=== PATIENT | female | born 1990 | race Caucasian/White ===

== ENCOUNTER 2017-02-27 20:32 | Observation (INO) | payer OTHER ==
[2017-02-27 21:41] LABS: ABSOLUTE EOSINOPHILS # (AUTO) 0.1 10^3/uL (0.0-0.6); ABSOLUTE MONOCYTES (AUTO) 0.9 10^3/uL (0.1-1.4); ABSOLUTE NEUT (AUTO) 7.2 10^3/uL (1.7-8.2); BASOPHILS % (AUTO) 0.4 % (0-2); EOSINOPHILS % (AUTO) 1.2 % (0-6); HEMATOCRIT 28.9 % (36.0-47.0); HEMOGLOBIN 9.8 g/dL (12.0-15.5); HGB HCT DIFFERENCE 0.5; LYMPHOCYTES % (AUTO) 19.2 % (13-45); MEAN CORPUSCULAR HEMOGLOBIN 29.8 pg (27.0-33.4); MEAN CORPUSCULAR HGB CONC 34.1 g/dL (32.0-36.0); MEAN CORPUSCULAR VOLUME 87 fl (80-97); MONOCYTES % (AUTO) 8.7 % (3-13); RED BLOOD COUNT 3.31 10^6/uL (3.72-5.28); RED CELL DISTRIBUTION WIDTH 14.2 % (11.5-14.0); SEGMENTED NEUTROPHILS % (AUTO) 70.5 % (42-78); WHITE BLOOD COUNT 10.2 10^3/uL (4.0-10.5)
[2017-02-27 21:43] LABS: APPEARANCE,URINE CLEAR; BILIRUBIN,URINE NEGATIVE (NEGATIVE); GLUCOSE, URINE NEGATIVE (NEGATIVE); KETONES,URINE NEGATIVE (NEGATIVE); LEUKOCYTE ESTERASE,URINE MODERATE (NEGATIVE); NITRITE,URINE NEGATIVE (NEGATIVE); PROTEIN,URINE >=500 mg/dL (NEGATIVE); URINE SPECIFIC GRAVITY 1.009; UROBILINOGEN,URINE NEGATIVE mg/dL (<2.0)
[2017-02-27 21:56] LABS: ALANINE AMINOTRANSFERASE 34 U/L (9-52); ALBUMIN 4.4 g/dL (3.5-5.0); ALKALINE PHOSPHATASE 52 U/L (38-126); ANION GAP 15 (5-19); ASPARTATE AMINO TRANSFERASE 17 U/L (14-36); BILIRUBIN,DIRECT 0.3 mg/dL (0.0-0.4); BILIRUBIN,TOTAL 0.3 mg/dL (0.2-1.3); BLOOD UREA NITROGEN 8 mg/dL (7-20); CALCIUM 9.7 mg/dL (8.4-10.2); CARBON DIOXIDE 23 mmol/L (22-30); CHLORIDE 103 mmol/L (98-107); CREATININE RESULT 0.77 mg/dL (0.52-1.25); GLUCOSE 112 mg/dL (75-110); LIPASE 51.9 U/L (23-300); POTASSIUM 3.9 mmol/L (3.6-5.0); SODIUM 140.7 mmol/L (137-145)
[2017-02-27] MEDS ORDERED: ONDANSETRON 4 MG TAB.RAPDIS PO ONE (23:15)
[2017-02-27] MEDS ORDERED: ACETAMINOPHEN 325 MG TABLET PO ONE (23:15)
[2017-02-27] MEDS ORDERED: NORMAL SALINE 1000 ML 1,000 ML IV ONE (23:17)
--- NOTE | 2017-02-27 23:18 | ER Document Report ---
ED Medical Screen (RME) - General Chief Complaint: Abdominal Pain Stated Complaint: LOWER ABDOMINAL PAIN Notes: Patient is a 26 right lower quadrant pain, she states it still hurts but sometimes it hurts a lot including when she sneezed and when she walks. Symptoms started yesterday. She was not aware she was running a low-grade fever. She denies vomiting, she states she had a normal bowel movement recently , she is currently on her menstrual cycle. She denies dysuria, flank pain. She does have painful periods but this is much worse than usual. TRAVEL OUTSIDE OF THE [place] IN LAST 30 DAYS: No - Related Data Allergies/Adverse Reactions: No Known Allergies Allergy (Unverified 02/27/17 21:06) Past Medical History Renal/ Medical History: Denies: Hx Peritoneal Dialysis Physical Exam - Vital signs Vitals: Temp Pulse Resp BP Pulse Ox 100.4 F 139 H 16 138/77 H 100 02/27/17 21:05 02/27/17 21:05 02/27/17 21:05 02/27/17 21:05 02/27/17 21:05 Course - Re-evaluation Re-evalutation: Patient actually is nontoxic in appearance, however she has low-grade fever, tachycardia, and she is guarding in her right lower quadrant. Will perform CAT scan. - Vital Signs Vital signs: Temp Pulse Resp BP Pulse Ox 100.4 F 139 H 16 138/77 H 100 02/27/17 21:05 02/27/17 21:05 02/27/17 21:05 02/27/17 21:05 02/27/17 21:05 - Laboratory Result Diagrams: 02/27/17 21:25 02/27/17 21:25 Laboratory results interpreted by me: 02/27/17 02/27/17 02/27/17 21:14 21:25 21:25 RBC 3.31 L Hgb 9.8 L Hct 28.9 L RDW 14.2 H Glucose 112 H Urine Protein >=500 H Urine Blood LARGE H Ur Leukocyte Esterase MODERATE H
--- NOTE | 2017-02-28 02:57 | RADIOLOGY REPORT (SQ) ---
EXAM DESCRIPTION: CT ABD/PELVIS WITH IV ORAL COMPLETED DATE/TIME: 02/28/2017 2:12 am REASON FOR STUDY: RLQ pain COMPARISON: None. TECHNIQUE: CT scan of the abdomen and pelvis performed using helical scanning technique with dynamic intravenous contrast injection. No oral contrast. Images reviewed with lung, soft tissue, and bone windows. Reconstructed coronal and sagittal MPR images reviewed. Delayed images for evaluation of the urinary system also acquired. All images stored on PACS. All CT scanners at this facility use dose modulation, iterative reconstruction, and/or weight based d osing when appropriate to reduce radiation dose to as low as reasonably achievable (ALARA). [facility]: Dose Right [facility]: CareDose [facility]: Dose Right [facility]: Teradose 4D [facility]: [employer] CONTRAST TYPE AND DOSE: contrast/concentration: Isovue 370.00 mg/ml; Total Contrast Delivered: 80.0 ml; Total Saline Delivered: 68.0 ml RENAL FUNCTION: None required. The patient is less than 50 years old. RADIATION DOSE: Up-to-date CT equipment and radiation dose reduction techniques were employed. CTDIv ol: 9.0 mGy. DLP: 982 mGy-cm.. LIMITATIONS: None. FINDINGS: LOWER CHEST: No significant findings. No nodules or infiltrates. LIVER: Normal size. No masses. No dilated ducts. SPLEEN: Normal size. No focal lesions. PANCREAS: No masses. No significant calcifications. No adjacent inflammation or peripancreatic fluid collections. Pancreatic duct not dilated. GALLBLADDER: No identified stones by CT criteria. No inflammatory changes to suggest cholecystitis. ADRENAL GLANDS: No significant masses or asymmetry. RIGHT KIDNEY AND URETER: No solid masses. No significant calcifications. No hydronephrosis or hyd roureter. LEFT KIDNEY AND URETER: No solid masses. No significant calcifications. No hydronephrosis or hydr oureter. AORTA AND VESSELS: No aneurysm. No dissection. Renal arteries, SMA, celiac without stenosis. RETROPERITONEUM: No retroperitoneal adenopathy, hemorrhage or masses. BOWEL AND PERITONEAL CAVITY: No masses or inflammatory changes. No free fluid or peritoneal masses. APPENDIX: Normal. PELVIS: Complex cystic collection at the anterior aspect of the endometrial cavity measure up to 5 cm in 2.4 cm. Minimal inflammation associated with bilateral broad ligaments. ABDOMINAL WALL: No masses. No hernias. BONES: Minimal lower thoracic disc desiccation. OTHER: No other significant finding. IMPRESSION: Indeterminate complex cystic collections involve the endometrium measuring up to 5 cm in 2.4 cm. Differential diagnosis includes clot and submucosal fibroids. Other infectious and neoplas tic processes cannot be excluded. Consider further evaluation/surveillance with pelvic sonogram and/ or HYPERION ADMINISTRATOR consultation. TECHNICAL DOCUMENTATION: JOB ID: [id number] Quality ID # [id number]: Final reports with documentation of one or more dose reduction techniques (e.g., Au tomated exposure control, adjustment of the mA and/or kV according to patient size, use of iterative reconstruction technique) 2010 [employer]- All Rights Reserved
--- NOTE | 2017-02-28 05:06 | RADIOLOGY REPORT (SQ) ---
EXAM DESCRIPTION: U/S NON OB PEL TV W/DOPPLER COMPLETED DATE/TIME: 02/28/2017 4:41 am REASON FOR STUDY: lower abd pain, clarify CT COMPARISON: None. TECHNIQUE: Dynamic and static grayscale images acquired of the pelvis via transvaginal approach and recorded on PACS. Additional selected color Doppler and spectral images recorded. LIMITATIONS: None. FINDINGS: UTERUS: Contour normal. No mass. ENDOMETRIAL STRIPE: Abnormal. Heterogeneous and enlarged measuring between 3.6 cm and 5.3 cm includi ng complex heterogeneous masses measuring up to 5.3 cm and 2.6 cm with hypervascularity demonstrated with Doppler sonogram. CERVIX: No nabothian cysts. 2.7 cm length. RIGHT OVARY: No abnormal masses. RIGHT OVARY DOPPLER: Normal arterial vascular flow without evidence for torsion. LEFT OVARY: No abnormal masses. LEFT OVARY DOPPLER: Normal arterial vascular flow without evidence for torsion. FREE FLUID: None noted. OTHER: No other significant finding. MEASUREMENTS: UTERUS: 10.9 x 7.9 x 6.5 cm. ENDOMETRIAL STRIPE: Abnormal. RIGHT OVARY: 3.1 cm. LEFT OVARY: 3.5 cm. IMPRESSION: Enlarged endometrial cavity with 2 masses discerned measuring 5.3 cm and 2.6 cm which ma y indicate submucosal or pedunculated fibroids, polyps, and/or other neoplasm. REGISTER OF WILLS consultation advi sed. TECHNICAL DOCUMENTATION: JOB ID: [id number]- All Rights Reserved
[2017-02-28] MEDS ORDERED: CEFTRIAXONE 1 GM/D5W RTU 1 GM/50 ML RTUPB IV ONE (06:17)
--- NOTE | 2017-02-28 06:17 | ER Document Report ---
ED General - General Chief Complaint: Abdominal Pain Stated Complaint: LOWER ABDOMINAL PAIN Time Seen by Provider: 02/27/17 23:26 Mode of Arrival: Ambulatory Information source: Patient Notes: 26-year-old female presents with complaints of right lower quadrant abdominal pain fever to 1 day duration. Patient denies any history of STDs was concerned it might be her appendicitis since it hurts with movement TRAVEL OUTSIDE OF THE [place] IN LAST 30 DAYS: No - HPI Onset: Yesterday Onset/Duration: Sudden, Worse Quality of pain: Achy Severity: Mild Pain Level: 1 Associated symptoms: Fever Exacerbated by: Denies Relieved by: Denies Similar symptoms previously: No Recently seen / treated by doctor: No - Related Data Allergies/Adverse Reactions: No Known Allergies Allergy (Unverified 02/27/17 21:06) Past Medical History - Social History Smoking Status: Never Smoker Cigarette use (# per day): No Chew tobacco use (# tins/day): No Smoking Education Provided: No Family History: Reviewed & Not Pertinent Patient has suicidal ideation: No Patient has homicidal ideation: No Renal/ Medical History: Denies: Hx Peritoneal Dialysis Review of Systems - Review of Systems Notes: REVIEW OF SYSTEMS: CONSTITUTIONAL : Febrile EENT: Denies eye, ear, throat, or mouth pain or symptoms. Denies nasal or sinus congestion or discharge. Denies throat, tongue, or mouth swelling or difficulty swallowing. CARDIOVASCULAR: Denies chest pain. Denies palpitations or racing or irregular heart beat. Denies ankle edema. RESPIRATORY: Denies cough, cold, or chest congestion. Denies shortness of breath, difficulty breathing, or wheezing. GASTROINTESTINAL: Admits to right lower quadrant pain GENITOURINARY: Denies difficulty urinating, painful urination, burning, frequency, blood in urine, or discharge. FEMALE GENITOURINARY: Denies vaginal bleeding, heavy or abnormal periods, irregular periods. Denies vaginal discharge or odor. MUSCULOSKELETAL: Denies back or neck pain or stiffness. Denies joint pain or swelling. SKIN: Denies rash, lesions or sores. HEMATOLOGIC : Denies easy bruising or bleeding. LYMPHATIC: Denies swollen, enlarged glands. NEUROLOGICAL: Denies confusion or altered mental status. Denies passing out or loss of consciousness. Denies dizziness or lightheadedness. Denies headache. Denies weakness or paralysis or loss of use of either side. Denies problems with gait or speech. Denies sensory loss, numbness, or tingling. Denies seizures. PSYCHIATRIC: Denies anxiety or stress. Denies depression, suicidal ideation, or homicidal ideation. ALL OTHER SYSTEMS REVIEWED AND NEGATIVE. PHYSICAL EXAMINATION: GENERAL: Well-appearing, well-nourished and in no acute distress. HEAD: Atraumatic, normocephalic. EYES: Pupils equal round and reactive to light, extraocular movements intact, conjunctiva are normal. ENT: Nares patent, oropharynx clear without exudates. Moist mucous membranes. NECK: Normal range of motion, supple without lymphadenopathy LUNGS: Breath sounds clear to auscultation bilaterally and equal. No wheezes rales or rhonchi. HEART: Tachycardic but regular rate and rhythm without murmurs ABDOMEN: Soft, tender in the right lower quadrant Female : deferred Musculoskeletal: Normal range of motion, no pitting or edema. No cyanosis. NEUROLOGICAL: Cranial nerves grossly intact. Normal speech, normal gait. Normal sensory, motor exams PSYCH: Normal mood, normal affect. SKIN: Warm, Dry, normal turgor, no rashes or lesions noted. Dictation was performed using [employer] voice recognition software Physical Exam - Vital signs Vitals: Temp Pulse Resp BP Pulse Ox 100.4 F 139 H 16 138/77 H 100 02/27/17 21:05 02/27/17 21:05 02/27/17 21:05 02/27/17 21:05 02/27/17 21:05 Course - Re-evaluation Re-evalutation: 02/28/17 06:20 Dr guzman consulted 02/28/17 08:57 Imaging lab work given the setting of fever is concerning for an abscess or infection. Patient was admitted to [facility] for IV antibiotics - Vital Signs Vital signs: Temp Pulse Resp BP Pulse Ox 97.8 F 98 18 129/77 H 100 02/28/17 08:14 02/28/17 08:14 02/28/17 08:14 02/28/17 08:14 02/28/17 08:14 - Laboratory Result Diagrams: 02/27/17 21:25 02/27/17 21:25 Laboratory results interpreted by me: 02/27/17 02/27/17 02/27/17 21:14 21:25 21:25 RBC 3.31 L Hgb 9.8 L Hct 28.9 L RDW 14.2 H Glucose 112 H Urine Protein >=500 H Urine Blood LARGE H Ur Leukocyte Esterase MODERATE H - Diagnostic Test Radiology reviewed: Image reviewed, Reports reviewed Discharge - Discharge Clinical Impression: Pelvic pain, Endometritis Fever Qualifiers: Fever type: unspecified Qualified Code(s): R50.9 - Fever, unspecified Condition: Stable Disposition: ADMITTED OBSERVATION Admitting Provider: [facility] Admitted: Surgical Floor
--- NOTE | 2017-02-28 08:20 | PDOC H&P ---
History of Present Illness Admission Date/PCP: 02/28/17 07:21 Patient complains of: fever and abdominal pain in right lower quadrant History of Present Illness: MICHELLE IBRAHIM is a 26 year old female. began having abdominal pain in right lower quadrant yesterday with fever of 100. Concern for possible appendicitis brought her to ER for evaluation. Denies N/V at this time. Indicates currently on day 4 of her menses. DIESEL TRACTOR OPERATOR contacted by ER physician for evaluation due to sono findings of thickened endometrium and fibroids. Concern for possible abscess. Patient indicates that she has been having heavy menses for several years which worsened after having a LEEP/CKC on cervix several years ago. Menses is heavy enough each month for a depends adult underwear liner. Past Medical History LMP: 02/27/2017 Social History Information Source: Patient Lives with: Spouse/Significant other Smoking Status: Never Smoker Frequency of Alcohol Use: None Hx Recreational Drug Use: No Drugs: None Family History Family History: None, Reviewed & Not Pertinent Parental Family History Reviewed: Yes Children Family History Reviewed: Yes Sibling(s) Family History Reviewed.: Yes Medication/Allergy Allergies/Adverse Reactions: No Known Allergies Allergy (Unverified 02/27/17 21:06) Review of Systems Constitutional: PRESENT: as per HPI, fever(s) Gastrointestinal: PRESENT: as per HPI, abdominal pain, bloating Physical Exam - Physical Exam Vital Signs: Temp Pulse Resp BP Pulse Ox 97.8 F 98 18 129/77 H 100 02/28/17 06:15 02/28/17 06:15 02/28/17 06:15 02/28/17 06:15 02/28/17 06:15 General appearance: PRESENT: no acute distress Head exam: PRESENT: atraumatic GI/Abdominal exam: PRESENT: soft, tenderness - mild tenderness on palpation only Result Impressions: Abdomen/Pelvis CT 02/28/17 00:00 IMPRESSION: Indeterminate complex cystic collections involve the endometrium measuring up to 5 cm in 2.4 cm. Differential diagnosis includes clot and submucosal fibroids. Other infectious and neoplastic processes cannot be excluded. Consider further evaluation/surveillance with pelvic sonogram and/or DIESEL TRACTOR OPERATOR consultation. Transvaginal US 02/28/17 03:03 IMPRESSION: Enlarged endometrial cavity with 2 masses discerned measuring 5.3 cm and 2.6 cm which may indicate submucosal or pedunculated fibroids, polyps, and/or other neoplasm. DIESEL TRACTOR OPERATOR consultation advised. Assessment & Plan - Diagnosis (1) Abdominal pain Qualifiers: Abdominal location: right lower quadrant Qualified Code(s): R10.31 - Right lower quadrant pain Is this a current diagnosis for this admission?: Yes (2) Endometritis Is this a current diagnosis for this admission?: Yes (3) Leiomyoma of body of uterus Qualifiers: Uterine leiomyoma location: intramural Qualified Code(s): D25.1 - Intramural leiomyoma of uterus Is this a current diagnosis for this admission?: Yes (4) Pelvic pain Is this a current diagnosis for this admission?: Yes - Plan Summary Plan Summary: admit for 23 hour obs for iv antibiotics. d/w pt regarding possibility of d&c as inpatient or having endometrial biopsy in office outpatient setting
[2017-02-28] MEDS: RINGERS SOLUTION,LACTATED 1,000 ML IV PRN ×2 (09:07→19:35)
[2017-02-28] MEDS: DOXYCYCLINE HYCLATE 100 MG in DEXTROSE 5%-WATER 250 ML IV SCH ×2 (09:52→21:08)
[2017-02-28] MEDS: ACETAMINOPHEN 325 MG TABLET PO SCH ×2 (13:44→17:01)
[2017-02-28 17:04] LABS: ABSOLUTE BASOPHILS # (AUTO) 0.1 10^3/uL (0.0-0.2); ABSOLUTE EOSINOPHILS # (AUTO) 0.1 10^3/uL (0.0-0.6); ABSOLUTE LYMPHOCYTES (AUTO) 1.6 10^3/uL (0.5-4.7); ABSOLUTE MONOCYTES (AUTO) 0.7 10^3/uL (0.1-1.4); ABSOLUTE NEUT (AUTO) 3.2 10^3/uL (1.7-8.2); BASOPHILS % (AUTO) 0.9 % (0-2); EOSINOPHILS % (AUTO) 1.8 % (0-6); HEMATOCRIT 26.4 % (36.0-47.0); HEMOGLOBIN 8.9 g/dL (12.0-15.5); HGB HCT DIFFERENCE 0.3; LYMPHOCYTES % (AUTO) 28.1 % (13-45); MEAN CORPUSCULAR HEMOGLOBIN 29.8 pg (27.0-33.4); MEAN CORPUSCULAR HGB CONC 33.7 g/dL (32.0-36.0); MEAN CORPUSCULAR VOLUME 88 fl (80-97); MONOCYTES % (AUTO) 11.6 % (3-13); RED BLOOD COUNT 2.99 10^6/uL (3.72-5.28); RED CELL DISTRIBUTION WIDTH 14.2 % (11.5-14.0); SEGMENTED NEUTROPHILS % (AUTO) 57.6 % (42-78); WHITE BLOOD COUNT 5.6 10^3/uL (4.0-10.5)
[2017-03-01] MEDS: ACETAMINOPHEN 325 MG TABLET PO SCH (05:10)
[2017-03-01] MEDS: RINGERS SOLUTION,LACTATED 1,000 ML IV PRN (06:48)
--- NOTE | 2017-03-01 09:22 | PDOC PROGRESS REPORT ---
Subjective Subjective:: Pt reports that her pain has resolved No new complaints Physical Exam - Physical Exam Vital Signs: Temp Pulse Resp BP Pulse Ox 98.0 F 80 16 99/44 L 97 03/01/17 07:04 03/01/17 07:04 03/01/17 07:04 03/01/17 07:04 03/01/17 07:04 General appearance: PRESENT: no acute distress, cooperative, well-developed GI/Abdominal exam: PRESENT: soft - Very mild RLQ tenderness, no guarding/rebound Result Laboratory Results: 02/28/17 16:57 02/28/17 16:57 WBC 5.6 RBC 2.99 L Hgb 8.9 L Hct 26.4 L MCV 88 MCH 29.8 MCHC 33.7 RDW 14.2 H Plt Count 294 Seg Neutrophils % 57.6 Lymphocytes % 28.1 Monocytes % 11.6 Eosinophils % 1.8 Basophils % 0.9 Absolute Neutrophils 3.2 Absolute Lymphocytes 1.6 Absolute Monocytes 0.7 Absolute Eosinophils 0.1 Absolute Basophils 0.1 Impressions: Abdomen/Pelvis CT 02/28/17 00:00 IMPRESSION: Indeterminate complex cystic collections involve the endometrium measuring up to 5 cm in 2.4 cm. Differential diagnosis includes clot and submucosal fibroids. Other infectious and neoplastic processes cannot be excluded. Consider further evaluation/surveillance with pelvic sonogram and/or LIVESTOCK PRODUCER consultation. Transvaginal US 02/28/17 03:03 IMPRESSION: Enlarged endometrial cavity with 2 masses discerned measuring 5.3 cm and 2.6 cm which may indicate submucosal or pedunculated fibroids, polyps, and/or other neoplasm. LIVESTOCK PRODUCER consultation advised. Assessment & Plan - Diagnosis (1) Leiomyoma of body of uterus Qualifiers: Uterine leiomyoma location: intramural Qualified Code(s): D25.1 - Intramural leiomyoma of uterus Is this a current diagnosis for this admission?: Yes (2) Pelvic pain Is this a current diagnosis for this admission?: Yes - Time Time Spent with patient: Less than 15 minutes Medications reviewed and adjusted accordingly: Yes Anticipated discharge: Home - Will d/c home f/u with Dr Deleon next week
--- NOTE | 2017-03-01 09:24 | PDOC DISCHARGE SUMMARY ---
General - Admit/Disc Date/PCP Admission Date/Primary Care Provider: 02/28/17 08:08 Discharge Date: 03/01/17 - Discharge Diagnosis (1) Leiomyoma of body of uterus Is this a current diagnosis for this admission?: Yes (2) Pelvic pain Is this a current diagnosis for this admission?: Yes - Additional Information Resuscitation Status: Full Code Home Medications: Naty Belmont/Linoleic/Gamoleni [Evening Belmont 1,000 mg Sftg] 1,300 mg PO DAILY 02/28/17 Ferrous Gluconate 324 mg PO BID 02/28/17 Iodoral 12.5 mg PO DAILY 02/28/17 Vitex 400 mg PO DAILY 02/28/17 History of Present Illness History of Present Illness: MICHELLE IBRAHIM is a 26 year old female Admitted for pelvic pain Hospital Course Hospital Course: Pelvic pain resolved Physical Exam - Physical Exam Vital Signs: Temp Pulse Resp BP Pulse Ox 98.0 F 80 16 99/44 L 97 03/01/17 07:04 03/01/17 07:04 03/01/17 07:04 03/01/17 07:04 03/01/17 07:04 General appearance: PRESENT: no acute distress, cooperative, well-developed GI/Abdominal exam: PRESENT: normal bowel sounds - Mild RLQ tenderness, no rebound/guarding, soft Result Laboratory Results: 02/28/17 16:57 02/28/17 16:57 WBC 5.6 RBC 2.99 L Hgb 8.9 L Hct 26.4 L MCV 88 MCH 29.8 MCHC 33.7 RDW 14.2 H Plt Count 294 Seg Neutrophils % 57.6 Lymphocytes % 28.1 Monocytes % 11.6 Eosinophils % 1.8 Basophils % 0.9 Absolute Neutrophils 3.2 Absolute Lymphocytes 1.6 Absolute Monocytes 0.7 Absolute Eosinophils 0.1 Absolute Basophils 0.1 Impressions: Abdomen/Pelvis CT 02/28/17 00:00 IMPRESSION: Indeterminate complex cystic collections involve the endometrium measuring up to 5 cm in 2.4 cm. Differential diagnosis includes clot and submucosal fibroids. Other infectious and neoplastic processes cannot be excluded. Consider further evaluation/surveillance with pelvic sonogram and/or WASTEWATER MANAGER consultation. Transvaginal US 02/28/17 03:03 IMPRESSION: Enlarged endometrial cavity with 2 masses discerned measuring 5.3 cm and 2.6 cm which may indicate submucosal or pedunculated fibroids, polyps, and/or other neoplasm. WASTEWATER MANAGER consultation advised. Plan Discharge Plan: Will d/c home f/u with Dr Deleon next week Time Spent: Less than 30 Minutes
[2017-03-01 09:41] VITALS: BP 129/77
== END 2017-03-01 10:11 | disposition home or self-care (01) ==
LOC: ER 20:32 → EH 02-28 07:21 → UNDOADMOB 02-28 07:21 → 2N 02-28 08:08 → EH 02-28 08:40 → 2N 02-28 08:40
PROVIDERS: ADMIT Obstetrics & Gynecology; ATTEND Obstetrics & Gynecology
DX: D25.1 Intramural leiomyoma of uterus (principal); R10.2 Pelvic and perineal pain; N92.0 Excessive and frequent menstruation with regular cycle; R50.9 Fever, unspecified; R00.0 Tachycardia, unspecified; Z98.890 Other specified postprocedural states
CPT/HCPCS: 99285; 96361; 96365; 36415 ×2; 87040; 84702; 83690; 85025 ×2; 80053; 81001; 76830; 93976; 74177; G0378 ×3; J3490; S0119; J7060; J7030; J7120 ×2; J0696

== ENCOUNTER 2017-04-18 05:26 | Day surgery (SDC) | payer OTHER ==
[2017-04-05 11:35] LABS: HEMATOCRIT 31.1 % (36.0-47.0); HEMOGLOBIN 10.5 g/dL (12.0-15.5); HGB HCT DIFFERENCE 0.4; MEAN CORPUSCULAR HEMOGLOBIN 29.1 pg (27.0-33.4); MEAN CORPUSCULAR HGB CONC 33.7 g/dL (32.0-36.0); MEAN CORPUSCULAR VOLUME 86 fl (80-97); RED CELL DISTRIBUTION WIDTH 13.8 % (11.5-14.0); WHITE BLOOD COUNT 4.8 10^3/uL (4.0-10.5)
[2017-04-05 11:37] LABS: APPEARANCE,URINE CLEAR; BILIRUBIN,URINE NEGATIVE (NEGATIVE); GLUCOSE, URINE NEGATIVE (NEGATIVE); KETONES,URINE NEGATIVE (NEGATIVE); LEUKOCYTE ESTERASE,URINE NEGATIVE (NEGATIVE); NITRITE,URINE NEGATIVE (NEGATIVE); PROTEIN,URINE NEGATIVE (NEGATIVE); URINE SPECIFIC GRAVITY 1.001; UROBILINOGEN,URINE NEGATIVE mg/dL (<2.0)
[~2017-04-18 05:26] MED LIST: RINGERS SOLUTION,LACTATED 1,000 ML IV PRN
[2017-04-18] MEDS ORDERED: MIDAZOLAM 2 MG/2 ML INJ ONE (07:29)
[2017-04-18] MEDS ORDERED: IBUPROFEN INJ 800 MG/8 ML VIAL IV ONE (07:29)
[2017-04-18] MEDS ORDERED: FENTANYL CITRATE INJ/PF 100 MCG/2 ML AMPUL ONE ×2 (07:29→07:34)
[2017-04-18] MEDS ORDERED: PROPOFOL INJ 200 MG/20 ML VIAL IV ONE (07:29)
[2017-04-18] MEDS ORDERED: ONDANSETRON HCL INJ/PF 4 MG/2 ML SDV ONE (07:29)
[2017-04-18] MEDS ORDERED: FENTANYL CITRATE INJ/PF 100 MCG/2 ML AMPUL IV PRN ×3 (08:16)
[2017-04-18] MEDS ORDERED: MORPHINE SULFATE 10 MG/ML INJ IV PRN (08:16)
[2017-04-18] MEDS ORDERED: MEPERIDINE HCL/PF INJ 25 MG/1 ML DISP.SYRIN IV PRN (08:16)
[2017-04-18] MEDS ORDERED: PROMETHAZINE HCL INJ 25 MG/1 ML VIAL IV PRN (08:16)
--- NOTE | 2017-04-18 09:33 | OPERATIVE REPORT E ---
Operative Report NAME: MICHELLE IBRAHIM : 1990 AGE: 26Y DATE OF SURGERY: 04/18/2017 ROOM: PREOPERATIVE DIAGNOSES: 1. Abnormal uterine bleeding. 2. Anemia. 3. Fever of unknown origin. POSTOPERATIVE DIAGNOSES: 1. Abnormal uterine bleeding. 2. Anemia. 3. Fever of unknown origin. PROCEDURE: Hysteroscopy and D and C with MyoSure. SURGEON: CARRIE PEREZ M.D. ANESTHESIA: Dr. Garcia with [facility]. FINDINGS: Very proliferative endometrium. Suspicious for small fibroid at the anterior aspect of the endometrial cavity. It looked like it was probably about a cm to 1-1/2 cm in width if it is indeed a fibroid. COMPLICATIONS: None. ESTIMATED BLOOD LOSS: 50 mL. SPECIMENS REMOVED: Endometrial sampling. PROCEDURE IN DETAIL: Patient was taken to the operating room, prepared and draped in the normal sterile fashion in dorsal lithotomy position. Under sterile conditions the in-and-out catheter was performed of approximately 100 mL of clear urine. Sterile speculum was then placed into the vagina and the single-tooth tenaculum grasped the anterior lip of the cervix. The cervix was prepped with Betadine and the uterus was sounded to 12 cm. The cervix was then dilated to accommodate the MyoSure camera and this was introduced without difficulty with the above findings noted during the procedure. The MyoSure was introduced and copious amount of endometrial tissue was removed and it is concentrating in the area on the anterior aspect of the endometrium. I then removed the MyoSure camera once I was able to ascertain that most of the material had been removed and I did introduce a Kevorkian curette several times to remove more material which did come in relatively proliferative amounts. Once this was completed and no more material was obtained with sharp curette, I discontinued the procedure and the patient was taken to PACU in stable condition. Sponge, lap and needle counts were correct x2. DICTATING PHYSICIAN: CARRIE PEREZ M.D. [id number] PHY#: [id number] ID: [id number] JOB#: [id number] ACCT: [id number] cc:CARRIE PEREZ M.D. >
[2017-04-18] MEDS ORDERED: RINGERS SOLUTION,LACTATED 1,000 ML IV PRN (09:37)
[2017-04-18] MEDS ORDERED: OXYCODONE-ACETAMINOPHEN 5-325 MG TABLET PO PRN ×2 (09:38→09:39)
[2017-04-18] MEDS ORDERED: MORPHINE SULFATE 10 MG/ML INJ IM PRN (09:38)
[2017-04-18] MEDS ORDERED: IBUPROFEN 800 MG TABLET PO PRN (09:38)
[2017-04-18 10:41] VITALS: BP 119/78
== END 2017-04-18 10:30 | disposition home or self-care (01) ==
LOC: OROUT 05:26
PROVIDERS: ATTEND Obstetrics & Gynecology
PROC: 0UDB8ZX Extraction of Endometrium, Via Natural or Artificial Opening Endoscopic, Diagnostic (ICD-10-PCS; principal; 2017-04-18 07:30)
DX: N93.9 Abnormal uterine and vaginal bleeding, unspecified (principal); D64.9 Anemia, unspecified; R50.9 Fever, unspecified
CPT/HCPCS: 36415; 85027; 81025; 81001; 88305 ×2; 58558; J2250; J3010; J2405; J2704; J1741; 952

== ENCOUNTER 2017-09-04 06:37 | Inpatient (IN) | payer OTHER ==
[2017-08-25 12:43] LABS: MEAN CORPUSCULAR HEMOGLOBIN 25.3 pg (27.0-33.4); MEAN CORPUSCULAR HGB CONC 32.1 g/dL (32.0-36.0); MEAN CORPUSCULAR VOLUME 79 fl (80-97); PLATELET COUNT 561 10^3/uL (150-450); RED BLOOD COUNT 3.03 10^6/uL (3.72-5.28); RED CELL DISTRIBUTION WIDTH 16.4 % (11.5-14.0); WHITE BLOOD COUNT 4.4 10^3/uL (4.0-10.5)
[2017-08-25 13:01] LABS: APPEARANCE,URINE SLIGHTLY-CLOUDY; BILIRUBIN,URINE NEGATIVE (NEGATIVE); COLOR,URINE STRAW; GLUCOSE, URINE NEGATIVE (NEGATIVE); KETONES,URINE NEGATIVE (NEGATIVE); LEUKOCYTE ESTERASE,URINE LARGE (NEGATIVE); NITRITE,URINE NEGATIVE (NEGATIVE); PROTEIN,URINE NEGATIVE (NEGATIVE); URINE SPECIFIC GRAVITY 1.004; UROBILINOGEN,URINE NEGATIVE mg/dL (<2.0)
[2017-08-25 13:07] LABS: ALANINE AMINOTRANSFERASE 15 U/L (9-52); ALBUMIN 4.3 g/dL (3.5-5.0); ALKALINE PHOSPHATASE 46 U/L (38-126); ANION GAP 11 (5-19); ASPARTATE AMINO TRANSFERASE 15 U/L (14-36); BLOOD UREA NITROGEN 8 mg/dL (7-20); CALCIUM 9.9 mg/dL (8.4-10.2); CARBON DIOXIDE 26 mmol/L (22-30); CHLORIDE 103 mmol/L (98-107); GLUCOSE 101 mg/dL (75-110); POTASSIUM 4.9 mmol/L (3.6-5.0); SODIUM 140.3 mmol/L (137-145); TOTAL PROTEIN 6.8 g/dL (6.3-8.2)
[2017-08-25 13:16] LABS: BILIRUBIN,TOTAL < 0.1 mg/dL (0.2-1.3)
[2017-08-25 13:20] LABS: HEMOGLOBIN 7.7 g/dL (12.0-15.5)
[~2017-09-04 06:37] MED LIST changes: +ACETAMINOPHEN 100 ML IV ONE; +CEFAZOLIN 1 GM/D5W RTU 1 GM/50 ML RTUPB IV PRN; +DEXAMETHASONE SOD PHOSPHATE INJ 4 MG/1 ML VIAL ONE; +FENTANYL CITRATE INJ/PF 100 MCG/2 ML AMPUL ONE; +LACTATED RINGERS 1000 ML IV PRN; +LIDOCAINE 0.5% INJ-PF (5 MG/ML) 50 ML SDV SUBCUT PRN; +LIDOCAINE 2% INJ-PF (20 MG/ML) 10 ML AMPUL ONE; +MIDAZOLAM 2 MG/2 ML INJ ONE; +ONDANSETRON HCL INJ/PF 4 MG/2 ML SDV ONE; +PROPOFOL INJ 200 MG/20 ML VIAL IV ONE; -RINGERS SOLUTION,LACTATED 1,000 ML IV PRN
[2017-09-04] MEDS ORDERED: BUPIVACAINE HCL 0.25 % INJ/PF (2.5 MG/1 ML) 30 ML VIAL ONE (07:23)
[2017-09-04 08:42] LABS: HEMATOCRIT 27.4 % (36.0-47.0); HEMOGLOBIN 8.8 g/dL (12.0-15.5); MEAN CORPUSCULAR HEMOGLOBIN 26.2 pg (27.0-33.4); MEAN CORPUSCULAR VOLUME 82 fl (80-97); PLATELET COUNT 331 10^3/uL (150-450); RED BLOOD COUNT 3.34 10^6/uL (3.72-5.28); RED CELL DISTRIBUTION WIDTH 19.8 % (11.5-14.0); WHITE BLOOD COUNT 4.4 10^3/uL (4.0-10.5)
[2017-09-04] MEDS ORDERED: OXYCODONE-ACETAMINOPHEN 5-325 MG TABLET PO PRN ×5 (10:06→13:22)
[2017-09-04] MEDS ORDERED: MORPHINE SULFATE 10 MG/ML INJ IV PRN (10:06)
[2017-09-04] MEDS ORDERED: DIPHENHYDRAMINE HCL 50 MG/ML VIAL IV PRN (10:06)
[2017-09-04] MEDS ORDERED: PROMETHAZINE HCL INJ 25 MG/1 ML VIAL IV PRN ×2 (10:06)
[2017-09-04] MEDS ORDERED: FENTANYL CITRATE INJ/PF 100 MCG/2 ML AMPUL IV PRN ×3 (10:06)
[2017-09-04] MEDS ORDERED: MEPERIDINE HCL/PF INJ 25 MG/1 ML DISP.SYRIN IV PRN (10:06)
[2017-09-04] MEDS ORDERED: KETOROLAC TROMETHAMINE INJ/PF 30 MG/1 ML SDV ONE (11:05)
[2017-09-04] MEDS: MEPERIDINE HCL/PF INJ 25 MG/1 ML DISP.SYRIN ONE ×2 (11:06→11:11)
[2017-09-04] MEDS ORDERED: FENTANYL CITRATE INJ/PF 100 MCG/2 ML AMPUL ONE (11:10)
[2017-09-04] MEDS: FENTANYL CITRATE INJ/PF 100 MCG/2 ML AMPUL ONE ×2 (11:15→11:20)
[2017-09-04] MEDS ORDERED: DEXTROSE 5%-LACTATED RINGERS 1,000 ML IV PRN (12:02)
--- NOTE | 2017-09-04 13:19 | OPERATIVE REPORT E ---
Operative Report NAME: MICHELLE IBRAHIM : 1990 AGE: 26Y DATE OF SURGERY: 09/04/2017 ROOM: 217 PREOPERATIVE DIAGNOSES: 1. Hypermenorrhea. 2. Dysmenorrhea. 3. Pelvic pain. POSTOPERATIVE DIAGNOSES: 1. Hypermenorrhea. 2. Dysmenorrhea. 3. Pelvic pain. 4. Endometriosis. 5. Fibroids. PROCEDURE: LAVH and bilateral salpingectomy. SURGEON: Andrea RODARTE M.D. ESTIMATED BLOOD LOSS: Approximately 200 mL. ANESTHESIA: General. TISSUE REMOVED OR ALTERED: Uterus and both tubes. PROCEDURE: The patient was placed in a dorsal lithotomy position, prepped and draped in sterile fashion. A speculum was placed, cervix visualized and grasped with a single tooth tenaculum. Hulka tenaculum was placed and single tooth tenaculum was removed. Attention was turned to the abdomen where a subumbilical semilunar incision was made. The trocar was introduced and it was placed in the abdomen. The laparoscope was introduced with findings of several endometriotic implants and a large uterus. A second puncture was made lateral to the first on the left and a third on the right. Five trocars were introduced. Using Harmonic scalpel, the left tube was removed along the mesosalpinx and continued down as far as could be safely reached on the left. Procedure was repeated on the right. The abdomen was deflated and the instruments were removed. Attention was turned to the pelvis. The Hulka tenaculum was removed. The cervix was grasped with *------* clamp. The posterior cul-de-sac was entered with sharp dissection. Posterior parietal perineum sutured to posterior cuff with 2-0 Vicryl after uterosacral was clamped, divided, and sutured with 2-0 Vicryl. It was repeated on the other side. The cervix was sharply circumscribed and bladder flap was created. Serial clamps on either side of the uterus to each pedicle being clamped, sutured, and divided and sutured with 2-0 Vicryl. This was continued until the above incisions were encountered. The uterus was large and had to be morcellated to remove it. It was morcellated in several pieces and removed. The cuff was inspected and the pedicles were inspected. Hemostasis was noted. Cuff was closed with interrupted sutures of 2-0 Vicryl. Attention was then turned to the abdomen where the abdomen was re-inflated and the laparoscope was re-introduced. The pelvis was irrigated with normal saline. Hemostasis was noted. The laparoscope was removed and the abdomen deflated. Trocar sleeves removed and the incision closed with 4-0 Vicryl subcutaneously. The Devries was removed. Urine remained clear throughout the procedure. She was taken to the recovery room in good condition. DICTATING PHYSICIAN: Andrea RODARTE M.D. [id number] PHY#: [id number] ID: [id number] JOB#: [id number] ACCT: [id number] cc:Andrea RODARTE M.D. >
[2017-09-04] MEDS ORDERED: HYDROMORPHONE HCL INJ/PF 2 MG/ML AMPULE ONE (13:20)
[2017-09-04] MEDS ORDERED: HYDROMORPHONE HCL INJ/PF 2 MG/ML AMPULE IV PRN (13:22)
[2017-09-04] MEDS: IBUPROFEN 800 MG TABLET PO SCH ×2 (13:23→22:22)
[2017-09-04] MEDS ORDERED: GLYCOPYRROLATE INJ 0.4 MG/2 ML VIAL ONE (13:27)
[2017-09-04] MEDS ORDERED: SUCCINYLCHOLINE CHLORIDE INJ 200 MG/10 ML VIAL ONE (13:27)
[2017-09-04] MEDS ORDERED: NEOSTIGMINE METHYLSULFATE 10 MG/10 ML VIAL ONE (13:27)
[2017-09-04] MEDS ORDERED: VECURONIUM BROMIDE INJ 10 MG VIAL IV ONE (13:27)
[2017-09-05] MEDS: IBUPROFEN 800 MG TABLET PO SCH (06:26)
--- NOTE | 2017-09-05 09:06 | PDOC PROGRESS REPORT ---
Subjective Progress Note for:: 09/05/17 Reason For Visit: N93.9 ABNORMAL UTERINE AND VAGINAL BLEEDIN, R10.30 Physical Exam - Physical Exam Vital Signs: Temp Pulse Resp BP Pulse Ox 98.8 F 79 18 108/59 L 98 09/05/17 04:42 09/05/17 04:42 09/05/17 04:42 09/05/17 04:42 09/05/17 04:42 Intake & Output 09/04/17 09/05/17 09/06/17 06:59 06:59 06:59 Intake Total 2650 Output Total 3375 Balance -725 General appearance: PRESENT: no acute distress Respiratory exam: PRESENT: clear to auscultation sera GI/Abdominal exam: PRESENT: soft Neurological exam: PRESENT: alert Psychiatric exam: PRESENT: normal mood Result Laboratory Results: 09/04/17 07:55 08/25/17 11:45 Assessment & Plan - Diagnosis (1) Endometriosis Is this a current diagnosis for this admission?: Yes (2) Abdominal pain Qualifiers: (3) Leiomyoma of body of uterus Qualifiers: - Time Time Spent with patient: 15-24 minutes Medications reviewed and adjusted accordingly: Yes Anticipated discharge: Home Within: Other Disposition: d/c today
--- NOTE | 2017-09-05 09:11 | PDOC DISCHARGE SUMMARY ---
General - Admit/Disc Date/PCP Admission Date/Primary Care Provider: 09/04/17 06:37 Discharge Date: 09/05/17 - Discharge Diagnosis (1) Endometriosis Is this a current diagnosis for this admission?: Yes - Additional Information Resuscitation Status: Full Code Discharge Diet: As Tolerated Discharge Activity: Balance Activity w/Rest, Energy Conservation, No Lifting Over 10 Pounds, No Lifting/Push/Pulling, Pelvic Rest, Slowly Increase Activity, No tub bath, Walk Frequently Home Medications: Ferrous Gluconate 324 mg PO BID 09/04/17 History of Present Illness Patient complains of: pelvic pain and hypermenorrhea History of Present Illness: MICHELLE IBRAHIM is a 26 year old female Physical Exam - Physical Exam Vital Signs: Temp Pulse Resp BP Pulse Ox 98.8 F 79 18 108/59 L 98 09/05/17 04:42 09/05/17 04:42 09/05/17 04:42 09/05/17 04:42 09/05/17 04:42 Intake & Output 09/04/17 09/05/17 09/06/17 06:59 06:59 06:59 Intake Total 2650 Output Total 3375 Balance -725 General appearance: PRESENT: no acute distress Respiratory exam: PRESENT: clear to auscultation sera GI/Abdominal exam: PRESENT: soft Result Laboratory Results: 09/04/17 07:55 08/25/17 11:45 Plan Discharge Plan: DC today Time Spent: Less than 30 Minutes
[2017-09-05 10:52] VITALS: BP 125/74
== END 2017-09-05 11:25 | disposition home or self-care (01) | DRG 743 ==
LOC: INOR 06:37 → 2S 12:12
PROVIDERS: ADMIT Obstetrics & Gynecology Gynecology; ATTEND Obstetrics & Gynecology Gynecology
PROC: 0UT7FZZ Resection of Bilateral Fallopian Tubes, Via Natural or Artificial Opening With Percutaneous Endoscopic Assistance (ICD-10-PCS; 2017-09-04)
PROC: 0UT9FZZ Resection of Uterus, Via Natural or Artificial Opening With Percutaneous Endoscopic Assistance (ICD-10-PCS; principal; 2017-09-04 08:45)
DX: N80.9 Endometriosis, unspecified (principal); N92.0 Excessive and frequent menstruation with regular cycle; D25.1 Intramural leiomyoma of uterus; D25.0 Submucous leiomyoma of uterus; N94.6 Dysmenorrhea, unspecified; N93.9 Abnormal uterine and vaginal bleeding, unspecified; E61.1 Iron deficiency
CPT/HCPCS: 36415; 80053; 81001; 81025; 840; 85027; 86850; 86900; 86901; 88307; J0131; J0330; J0690; J1100; J1170; J1885; J2175; J2250; J2405; J2704; J3010; J3490